=== PATIENT | female | born 2000 | race Caucasian/White ===

== ENCOUNTER 2021-07-12 15:28 | Emergency (ER) | payer MEDICAID ==
[~2021-07-12] VITALS: Ht 180.3 cm; Wt 107.3 kg
[2021-07-12 15:48] VITALS: BP 137/92
[2021-07-12] MEDS ORDERED: ARIP10TA15 PO (16:02)
[2021-07-12] MEDS ORDERED: ESCI20TA PO (16:02)
[2021-07-12] MEDS ORDERED: PROP10TA10 PO (16:02)
[2021-07-12] MEDS ORDERED: NAPR-56 PO (16:02)
[2021-07-12] MEDS ORDERED: LIDO700A32 TOP (16:02)
== END 2021-07-12 16:22 | disposition home or self-care (01) ==
LOC: ER 15:30
DX: G89.29 Other chronic pain (principal); M54.50 Low back pain, unspecified; F41.9 Anxiety disorder, unspecified; Z76.0 Encounter for issue of repeat prescription; Z79.899 Other long term (current) drug therapy
CPT/HCPCS: 99283

== ENCOUNTER 2022-02-08 10:02 | Emergency (ER) | payer MEDICAID ==
[~2022-02-08] VITALS: Ht 180.3 cm; Wt 106.8 kg
[~2022-02-08 10:02] MED LIST: ARIP10TA15 PO; ESCI20TA PO; LIDO700A32 TOP
[2022-02-08 10:19] VITALS: BP 134/90
[2022-02-08] MEDS ORDERED: predniSONE 20 mg tablet PO ONE (13:55)
[2022-02-08] MEDS ORDERED: DOXYCYCLINE 100MG CAPSULE PO STA ×2 (13:55→14:22)
[2022-02-08] MEDS ORDERED: ALBU8.5H17 INH (14:00)
[2022-02-08] MEDS ORDERED: DOXY100C76 PO (14:00)
[2022-02-08] MEDS ORDERED: PRED20TA PO (14:00)
== END 2022-02-08 14:39 | disposition home or self-care (01) ==
LOC: ER 10:02
DX: J20.9 Acute bronchitis, unspecified (principal); J02.9 Acute pharyngitis, unspecified; R53.83 Other fatigue; R50.9 Fever, unspecified; G89.29 Other chronic pain; M54.50 Low back pain, unspecified; F31.9 Bipolar disorder, unspecified; F17.200 Nicotine dependence, unspecified, uncomplicated; F12.90 Cannabis use, unspecified, uncomplicated; Z88.1 Allergy status to other antibiotic agents; Z88.0 Allergy status to penicillin; Z88.8 Allergy status to other drugs, medicaments and biological substances
CPT/HCPCS: 71045; 87502; 87503; 99284; J7512